=== PATIENT | male | born 1990 | race Caucasian/White ===

== ENCOUNTER 2025-01-02 14:24 | Emergency (ER) | payer OTHER, SELFPAY ==
[2025-01-02 14:28] VITALS: BP 151/84; PULSE 75; TEMP 37.1; O2SAT 97; BMI 26.7
[2025-01-02] MEDS: PREDNISONE 20 MG TABLET 40 MG PO (14:55)
[2025-01-02] MEDS: KETOROLAC TROMETHAMINE 30 MG/ML VIAL IM (14:55)
--- NOTE | 2025-01-02 15:16 | ED.GENADUL1 ---
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 is coming to the ER because of sinus congestion and bilateral ear ringing that started this morning, he have no fever no chills he have some nasal congestion he denies any abdominal pain nausea or vomiting He has some frontal headache No cough The patient does not take of any meds with a month ago when he had the bacterial infection he had to be admitted and he is coming to us today from a detox facility At that time the patient had to have a drainage and cleaning of the sinuses in addition to the fact that he also needed IV antibiotic Related Data Previous Rx's ?Medication ?Instructions ?Recorded amoxicillin 875 mg-potassium 1 tab PO Q12H #14 tabs 01/02/25 clavulanate 125 mg tablet fluticasone propionate 50 1 spray intranasal Q12H #16 grams 01/02/25 mcg/actuation nasal spray,suspension (24 Hour Allergy Relief) guaifenesin 600 mg tablet, 600 mg PO BID PRN congestion #10 01/02/25 extended release 12 hr (Mucinex) tabs Allergies Allergy/AdvReac Type Severity Reaction Status Date / Time No Known Drug Allergies Allergy Verified 01/02/25 14:28 Opioid HPI Opioid Management Most Recent Opioid Data: Last Pain Scale 5 Today, 14:55 Last MAR Pain Assessment Today, 14:55 Review of Systems ROS Status of ROS 10 or more systems reviewed and unremarkable except as noted in history and below PFSH PFSH Social History Little interest or pleasure in doing things: not at all Feeling down, depressed, or hopeless: not at all Exam Narrative Exam Narrative: Nurses notes and vital signs reviewed and patient is not hypoxic. General: Well-appearing and in no apparent distress. Skin: Warm, dry, no pallor noted. No rash. Head: Normocephalic, atraumatic. Neck: Supple, non-tender. Eye: Pupils are equal, round and EOMI. No scleral icterus. Ears, Nose, Mouth, and Throat: both tympanic membranes are bulging and showing serous fluid behind them there is no erythema, and the patient also had nasal congestion noted and the erythematous turbinate but there is no white discharge and there is no tenderness on palpation oral mucosa is moist, no posterior oropharynx erythema, uvula is mid-line Cardiovascular: Regular Rate and Rhythm without murmur, gallop or rub. Respiratory: No accessory muscle use or respiratory distress. Lungs are clear to auscultation, no wheezing, rales or rhonchi Chest Wall: no tenderness Back: No midline thoracic or lumbar vertebral tenderness. No CVA tenderness Musculoskeletal: normal ROM, no calf or popliteal tenderness, no lower extremity edema/swelling GI: Abdomen is soft, non-distended. Normal bowel sounds. No masses appreciated. No tenderness to palpation. No rebound, guarding, or rigidity noted. Neurological: A&O x4. No cranial nerve dysfunction observed. Constitutional Vital Signs, click to edit/add: Last Vital Signs Temp 98.7 F 01/02/25 14:28 Pulse 75 01/02/25 14:28 Resp 97 H 01/02/25 14:28 BP 151/84 H 01/02/25 14:28 Pulse Ox 97 01/02/25 14:28 O2 Del Method Room Air 01/02/25 14:28 Course Vital Signs Vital signs: Vital Signs Temperature 98.7 F 01/02/25 14:28 Pulse Rate 75 01/02/25 14:28 Respiratory Rate 97 H 01/02/25 14:28 Blood Pressure 151/84 H 01/02/25 14:28 Pulse Oximetry 97 01/02/25 14:28 Oxygen Delivery Method Room Air 01/02/25 14:28 Temperature 98.7 F 01/02/25 14:28 Pulse Rate 75 01/02/25 14:28 Respiratory Rate 97 H 01/02/25 14:28 Blood Pressure 151/84 H 01/02/25 14:28 Pulse Oximetry 97 01/02/25 14:28 Oxygen Delivery Method Room Air 01/02/25 14:28 Medical Decision Making MDM Narrative Medical decision making narrative: The patient presentation right now it is mostly secondary to bilateral otitis media and sinusitis that could be a viral But with his history and the fact that he had recent bacterial infection the patient instructed that he need to be very cautious He was provided right now with supportive care of Flonase and Mucinex instructed to hydrate very well he does not have any fever and there is no systemic signs of illness and he does not have even have any tenderness or discharge other than serous from his bilateral naris Was instructed that he was provided with the Augmentin prescription that he need to fill after 5 days or in case of no improvement so that he make sure that he come back to the ER in case of fever or increasing symptoms The patient is to follow up with primary care physician in next 2-3 days or to return to the emergency department should any of the signs or symptoms worsen or new symptoms develop. The patient agrees with the following Diagnosis and Treatment plan and the patient will be discharged home. Discharge Plan Discharge Chief Complaint: Headache Clinical Impression: Headache, Sinusitis, Otitis media Patient Disposition: Home, Self-Care Time of Disposition Decision: 15:17 Condition: Good Prescriptions / Home Meds: New fluticasone propionate [24 Hour Allergy Relief] 50 mcg/actuation spray,suspension 1 spray intranasal Q12H Qty: 16 0RF Rx Instructions: administer into each nostril guaifenesin [Mucinex] 600 mg tablet extended release 12hr 600 mg PO BID PRN (Reason: congestion) Qty: 10 0RF amoxicillin-pot clavulanate 875-125 mg tablet 1 tab PO Q12H Qty: 14 0RF Print Language: Korean Instructions: Sinusitis (ED), Ear Infection (ED), Acute Headache (ED) Referrals: Physician,Non-Staff, MD [Primary Care Provider] - 1 week Discharge Date/Time: 01/02/25 15:25
== END 2025-01-02 15:25 | disposition home or self-care (01) ==
PROVIDERS: Emergency Provider Emergency Medicine
DX: R51.9 Headache, unspecified (principal); H66.93 Otitis media, unspecified, bilateral; J32.9 Chronic sinusitis, unspecified
CPT/HCPCS: 96372; 99284; J1885; J7512